=== PATIENT | male | born 1955 | race African-American/Black ===

== ENCOUNTER 2020-10-28 13:39 | Inpatient (IN) | payer OTHER ==
[2020-10-28 15:07] VITALS: BMI 28.9
[2020-10-28] MEDS ORDERED: guaiFENesin 200 MG/10 ML 10 ML UNIT-DOSE CUPS PO PRN (19:53)
[2020-10-28] MEDS ORDERED: IBUPROFEN 400 MG TABLET (FP) PO PRN (19:53)
[2020-10-28] MEDS ORDERED: MAGNESIUM CITRATE 300 ML BOTTLE PO PRN (19:53)
[2020-10-28] MEDS ORDERED: MAGNESIUM HYDROX 2400MG/30ML ORAL SUSPENSION 30 ML CUP PO PRN (19:53)
[2020-10-28] MEDS ORDERED: NICOTINE 10 MG CARTRIDGE (INHALER) IH PRN (19:53)
[2020-10-28] MEDS ORDERED: P-EPHED 60MG/TRIPROLIDI 2.5MG TABLET PO PRN (19:53)
[2020-10-28] MEDS ORDERED: LOPERAMIDE HCL 2 MG CAPSULE PO PRN (19:53)
[2020-10-28] MEDS ORDERED: MAG HYDROX/AL HYDROX/SIMETH 30 ML UNIT-DOSE CUP PO PRN (19:53)
[2020-10-28] MEDS ORDERED: ACETAMINOPHEN 325 MG TABLET (FP) PO PRN (19:53)
[2020-10-28] MEDS ORDERED: TUBERCULIN PPD 5 TU/0.1ML VIAL ID ONE (22:18)
[2020-10-28] MEDS: THIAMINE HCL 100 MG TABLET (FP) PO SCH (22:36)
[2020-10-28] MEDS: MELATONIN 5 MG TABLETS PO SCH (22:36)
[2020-10-29 10:10] LABS: HEMATOCRIT 35.4 % (35.4-49); HEMOGLOBIN 11.6 GM/dL (11.7-16.9); MCH 25.2 pg (25.7-33.7); MCHC 32.7 g/dl (32.0-35.9); MEAN CELL VOLUME 76.9 fl (80-96); MEAN PLT VOLUME 7.5 fl (7.5-11.1); PLATELET COUNT 327 10^3/uL (134-434); RBC 4.61 M/mm3 (4.00-5.60); RDW 19.6 % (11.9-15.9); WHITE BLOOD COUNT 10.7 K/mm3 (4.0-10.0)
[2020-10-29 10:13] LABS: EPI CELLS 4 /uL (0-25.1); HYALINE CASTS 0 /uL (0-3.1); URINE APPEARANCE CLEAR; URINE BACTERIA 1846 /uL (0-1359); URINE BILIRUBIN NEGATIVE (NEGATIVE); URINE COLOR YELLOW; URINE GLUCOSE (UA) NEGATIVE (NEGATIVE); URINE KETONE NEGATIVE (NEGATIVE); URINE LEUK ESTERASE TRACE (NEGATIVE); URINE NITRITE NEGATIVE (NEGATIVE); URINE PROTEIN NEGATIVE (NEGATIVE); URINE RBC 9 /uL (0-23.9); URINE WBC 7 /uL (0-25.8)
[2020-10-29 10:15] LABS: BLOOD UREA NITROGEN 18.9 mg/dL (7-18); CALCIUM 9.5 mg/dL (8.5-10.1)
[2020-10-29] MEDS: PRENATAL VITAMINS W/ FOLIC ACID TABLET (FP) PO SCH (10:15)
[2020-10-29] MEDS: NICOTINE 14 MG/24 HOURS TOPICAL PATCH TD SCH (10:16)
[2020-10-29] MEDS: TIOTROPIUM BROMIDE 2.5 MCG (SPIRIVA) RESPIMAT INHALER IH SCH (13:59)
[2020-10-29] MEDS: ALBUTEROL SO4 HFA INHALER IH SCH ×2 (14:00→19:34)
[2020-10-29] MEDS ORDERED: ATORVASTATIN CA 40 MG TABLET (FP) ONE (20:57)
[2020-10-29] MEDS: MELATONIN 5 MG TABLETS PO SCH (21:00)
[2020-10-29] MEDS: BUDESONIDE/FORMETEROL FUMARATE 160/4.5 mcg INHALER IH SCH (21:00)
[2020-10-29] MEDS: THIAMINE HCL 100 MG TABLET (FP) PO SCH (21:00)
[2020-10-29] MEDS: ATORVASTATIN CA 80 MG TABLET (FP) PO SCH (21:00)
[2020-10-30] MEDS: ALBUTEROL SO4 HFA INHALER IH SCH ×4 (00:01→19:00)
[2020-10-30] MEDS ORDERED: PT OWN MED DRAWER 7, Y5N ONE (03:15)
[2020-10-30] MEDS: PRENATAL VITAMINS W/ FOLIC ACID TABLET (FP) PO SCH (09:51)
[2020-10-30] MEDS: ASPIRIN 81 MG CHEWABLE TABLETS PO SCH (09:52)
[2020-10-30] MEDS: NICOTINE 14 MG/24 HOURS TOPICAL PATCH TD SCH (09:52)
[2020-10-30] MEDS: TIOTROPIUM BROMIDE 2.5 MCG (SPIRIVA) RESPIMAT INHALER IH SCH (09:52)
[2020-10-30] MEDS: BUDESONIDE/FORMETEROL FUMARATE 160/4.5 mcg INHALER IH SCH ×2 (09:54→21:46)
[2020-10-30] MEDS: LISINOPRIL 5 MG TABLET PO SCH (09:55)
[2020-10-30] MEDS ORDERED: ATORVASTATIN CA 40 MG TABLET (FP) ONE (19:27)
[2020-10-30] MEDS: MELATONIN 5 MG TABLETS PO SCH (21:35)
[2020-10-30] MEDS: ATORVASTATIN CA 80 MG TABLET (FP) PO SCH (21:35)
[2020-10-30] MEDS: THIAMINE HCL 100 MG TABLET (FP) PO SCH (21:35)
[2020-10-31] MEDS: ALBUTEROL SO4 HFA INHALER IH SCH ×4 (01:29→22:10)
[2020-10-31] MEDS: ASPIRIN 81 MG CHEWABLE TABLETS PO SCH (09:41)
[2020-10-31] MEDS: PRENATAL VITAMINS W/ FOLIC ACID TABLET (FP) PO SCH (09:41)
[2020-10-31] MEDS: NICOTINE 14 MG/24 HOURS TOPICAL PATCH TD SCH (09:41)
[2020-10-31] MEDS: TIOTROPIUM BROMIDE 2.5 MCG (SPIRIVA) RESPIMAT INHALER IH SCH (09:45)
[2020-10-31] MEDS: LISINOPRIL 5 MG TABLET PO SCH (09:46)
[2020-10-31] MEDS: BUDESONIDE/FORMETEROL FUMARATE 160/4.5 mcg INHALER IH SCH ×2 (09:46→21:09)
[2020-10-31] MEDS: ATORVASTATIN CA 80 MG TABLET (FP) PO SCH (21:08)
[2020-10-31] MEDS: THIAMINE HCL 100 MG TABLET (FP) PO SCH (21:08)
[2020-10-31] MEDS: MELATONIN 5 MG TABLETS PO SCH (21:08)
[2020-11-01] MEDS: ALBUTEROL SO4 HFA INHALER IH SCH ×4 (02:56→18:30)
[2020-11-01] MEDS: PRENATAL VITAMINS W/ FOLIC ACID TABLET (FP) PO SCH (09:53)
[2020-11-01] MEDS: TIOTROPIUM BROMIDE 2.5 MCG (SPIRIVA) RESPIMAT INHALER IH SCH (09:53)
[2020-11-01] MEDS: LISINOPRIL 5 MG TABLET PO SCH (09:53)
[2020-11-01] MEDS: ASPIRIN 81 MG CHEWABLE TABLETS PO SCH (09:53)
[2020-11-01] MEDS: NICOTINE 14 MG/24 HOURS TOPICAL PATCH TD SCH (09:53)
[2020-11-01] MEDS: BUDESONIDE/FORMETEROL FUMARATE 160/4.5 mcg INHALER IH SCH ×2 (09:54→21:27)
[2020-11-01] MEDS ORDERED: ATORVASTATIN CA 40 MG TABLET (FP) ONE (18:35)
[2020-11-01] MEDS: ATORVASTATIN CA 80 MG TABLET (FP) PO SCH (21:26)
[2020-11-01] MEDS: THIAMINE HCL 100 MG TABLET (FP) PO SCH (21:26)
[2020-11-01] MEDS: MELATONIN 5 MG TABLETS PO SCH (21:26)
[2020-11-02] MEDS: ALBUTEROL SO4 HFA INHALER IH SCH ×4 (01:36→19:47)
[2020-11-02] MEDS: NICOTINE 14 MG/24 HOURS TOPICAL PATCH TD SCH (09:43)
[2020-11-02] MEDS: PRENATAL VITAMINS W/ FOLIC ACID TABLET (FP) PO SCH (09:43)
[2020-11-02] MEDS: ASPIRIN 81 MG CHEWABLE TABLETS PO SCH (09:43)
[2020-11-02] MEDS: TIOTROPIUM BROMIDE 2.5 MCG (SPIRIVA) RESPIMAT INHALER IH SCH (09:43)
[2020-11-02] MEDS: LISINOPRIL 5 MG TABLET PO SCH (09:43)
[2020-11-02] MEDS: BUDESONIDE/FORMETEROL FUMARATE 160/4.5 mcg INHALER IH SCH ×2 (10:23→21:07)
[2020-11-02] MEDS ORDERED: ATORVASTATIN CA 40 MG TABLET (FP) ONE (18:28)
[2020-11-02] MEDS: THIAMINE HCL 100 MG TABLET (FP) PO SCH (21:06)
[2020-11-02] MEDS: MELATONIN 5 MG TABLETS PO SCH (21:06)
[2020-11-02] MEDS: ATORVASTATIN CA 80 MG TABLET (FP) PO SCH (21:06)
[2020-11-03] MEDS: ALBUTEROL SO4 HFA INHALER IH SCH ×4 (01:44→18:59)
[2020-11-03] MEDS: ASPIRIN 81 MG CHEWABLE TABLETS PO SCH (09:52)
[2020-11-03] MEDS: PRENATAL VITAMINS W/ FOLIC ACID TABLET (FP) PO SCH (09:52)
[2020-11-03] MEDS: TIOTROPIUM BROMIDE 2.5 MCG (SPIRIVA) RESPIMAT INHALER IH SCH (09:53)
[2020-11-03] MEDS: NICOTINE 14 MG/24 HOURS TOPICAL PATCH TD SCH (09:53)
[2020-11-03] MEDS: LISINOPRIL 5 MG TABLET PO SCH (09:53)
[2020-11-03] MEDS: BUDESONIDE/FORMETEROL FUMARATE 160/4.5 mcg INHALER IH SCH ×2 (10:09→21:21)
[2020-11-03] MEDS ORDERED: ATORVASTATIN CA 40 MG TABLET (FP) ONE (18:50)
[2020-11-03] MEDS: THIAMINE HCL 100 MG TABLET (FP) PO SCH (21:21)
[2020-11-03] MEDS: ATORVASTATIN CA 80 MG TABLET (FP) PO SCH (21:21)
[2020-11-03] MEDS: MELATONIN 5 MG TABLETS PO SCH (21:21)
[2020-11-04] MEDS: ALBUTEROL SO4 HFA INHALER IH SCH ×4 (01:11→18:44)
[2020-11-04] MEDS: TIOTROPIUM BROMIDE 2.5 MCG (SPIRIVA) RESPIMAT INHALER IH SCH (09:57)
[2020-11-04] MEDS: PRENATAL VITAMINS W/ FOLIC ACID TABLET (FP) PO SCH (09:57)
[2020-11-04] MEDS: ASPIRIN 81 MG CHEWABLE TABLETS PO SCH (09:57)
[2020-11-04] MEDS: BUDESONIDE/FORMETEROL FUMARATE 160/4.5 mcg INHALER IH SCH ×2 (09:57→21:08)
[2020-11-04] MEDS: NICOTINE 14 MG/24 HOURS TOPICAL PATCH TD SCH (09:57)
[2020-11-04] MEDS: LISINOPRIL 5 MG TABLET PO SCH (09:57)
[2020-11-04] MEDS: THIAMINE HCL 100 MG TABLET (FP) PO SCH (21:08)
[2020-11-04] MEDS: ATORVASTATIN CA 80 MG TABLET (FP) PO SCH (21:08)
[2020-11-04] MEDS: MELATONIN 5 MG TABLETS PO SCH (21:08)
[2020-11-05] MEDS: ALBUTEROL SO4 HFA INHALER IH SCH ×4 (01:38→18:45)
[2020-11-05] MEDS: ASPIRIN 81 MG CHEWABLE TABLETS PO SCH (10:15)
[2020-11-05] MEDS: PRENATAL VITAMINS W/ FOLIC ACID TABLET (FP) PO SCH (10:15)
[2020-11-05] MEDS: LISINOPRIL 5 MG TABLET PO SCH (10:16)
[2020-11-05] MEDS: NICOTINE 14 MG/24 HOURS TOPICAL PATCH TD SCH (10:16)
[2020-11-05] MEDS: TIOTROPIUM BROMIDE 2.5 MCG (SPIRIVA) RESPIMAT INHALER IH SCH (10:16)
[2020-11-05] MEDS: BUDESONIDE/FORMETEROL FUMARATE 160/4.5 mcg INHALER IH SCH ×2 (10:16→21:12)
[2020-11-05] MEDS ORDERED: ATORVASTATIN CA 40 MG TABLET (FP) ONE (18:50)
[2020-11-05] MEDS: MELATONIN 5 MG TABLETS PO SCH (21:11)
[2020-11-05] MEDS: THIAMINE HCL 100 MG TABLET (FP) PO SCH (21:12)
[2020-11-05] MEDS: ATORVASTATIN CA 80 MG TABLET (FP) PO SCH (21:12)
[2020-11-06] MEDS: ALBUTEROL SO4 HFA INHALER IH SCH ×4 (00:58→17:43)
[2020-11-06] MEDS: PRENATAL VITAMINS W/ FOLIC ACID TABLET (FP) PO SCH (09:56)
[2020-11-06] MEDS: NICOTINE 14 MG/24 HOURS TOPICAL PATCH TD SCH (09:57)
[2020-11-06] MEDS: TIOTROPIUM BROMIDE 2.5 MCG (SPIRIVA) RESPIMAT INHALER IH SCH (09:57)
[2020-11-06] MEDS: LISINOPRIL 5 MG TABLET PO SCH (09:57)
[2020-11-06] MEDS: ASPIRIN 81 MG CHEWABLE TABLETS PO SCH (09:57)
[2020-11-06] MEDS: BUDESONIDE/FORMETEROL FUMARATE 160/4.5 mcg INHALER IH SCH ×2 (09:58→21:09)
[2020-11-06] MEDS ORDERED: ATORVASTATIN CA 40 MG TABLET (FP) ONE (18:46)
[2020-11-06] MEDS: MELATONIN 5 MG TABLETS PO SCH (21:08)
[2020-11-06] MEDS: ATORVASTATIN CA 80 MG TABLET (FP) PO SCH (21:09)
[2020-11-06] MEDS: THIAMINE HCL 100 MG TABLET (FP) PO SCH (21:09)
[2020-11-07] MEDS: ALBUTEROL SO4 HFA INHALER IH SCH ×4 (00:53→19:33)
[2020-11-07] MEDS: TIOTROPIUM BROMIDE 2.5 MCG (SPIRIVA) RESPIMAT INHALER IH SCH (10:14)
[2020-11-07] MEDS: LISINOPRIL 5 MG TABLET PO SCH (10:14)
[2020-11-07] MEDS: PRENATAL VITAMINS W/ FOLIC ACID TABLET (FP) PO SCH (10:14)
[2020-11-07] MEDS: ASPIRIN 81 MG CHEWABLE TABLETS PO SCH (10:14)
[2020-11-07] MEDS: NICOTINE 14 MG/24 HOURS TOPICAL PATCH TD SCH (10:14)
[2020-11-07] MEDS: BUDESONIDE/FORMETEROL FUMARATE 160/4.5 mcg INHALER IH SCH ×2 (10:15→21:32)
[2020-11-07] MEDS ORDERED: ATORVASTATIN CA 40 MG TABLET (FP) ONE (18:46)
[2020-11-07] MEDS: MELATONIN 5 MG TABLETS PO SCH (21:32)
[2020-11-07] MEDS: ATORVASTATIN CA 80 MG TABLET (FP) PO SCH (21:32)
[2020-11-07] MEDS: THIAMINE HCL 100 MG TABLET (FP) PO SCH (21:32)
[2020-11-08] MEDS: ALBUTEROL SO4 HFA INHALER IH SCH ×4 (01:02→21:19)
[2020-11-08] MEDS: NICOTINE 14 MG/24 HOURS TOPICAL PATCH TD SCH (09:49)
[2020-11-08] MEDS: ASPIRIN 81 MG CHEWABLE TABLETS PO SCH (09:49)
[2020-11-08] MEDS: PRENATAL VITAMINS W/ FOLIC ACID TABLET (FP) PO SCH (09:49)
[2020-11-08] MEDS: TIOTROPIUM BROMIDE 2.5 MCG (SPIRIVA) RESPIMAT INHALER IH SCH (09:50)
[2020-11-08] MEDS: LISINOPRIL 5 MG TABLET PO SCH (09:50)
[2020-11-08] MEDS: BUDESONIDE/FORMETEROL FUMARATE 160/4.5 mcg INHALER IH SCH ×2 (09:51→21:19)
[2020-11-08] MEDS ORDERED: ATORVASTATIN CA 40 MG TABLET (FP) ONE (20:09)
[2020-11-08] MEDS: ATORVASTATIN CA 80 MG TABLET (FP) PO SCH (21:18)
[2020-11-08] MEDS: THIAMINE HCL 100 MG TABLET (FP) PO SCH (21:18)
[2020-11-08] MEDS: MELATONIN 5 MG TABLETS PO SCH (21:19)
[2020-11-09] MEDS: ALBUTEROL SO4 HFA INHALER IH SCH ×4 (00:57→18:35)
[2020-11-09] MEDS ORDERED: PT OWN MED DRAWER 7, Y5N ONE ×2 (03:10→07:19)
[2020-11-09] MEDS: LISINOPRIL 5 MG TABLET PO SCH (10:28)
[2020-11-09] MEDS: NICOTINE 14 MG/24 HOURS TOPICAL PATCH TD SCH (10:28)
[2020-11-09] MEDS: PRENATAL VITAMINS W/ FOLIC ACID TABLET (FP) PO SCH (10:28)
[2020-11-09] MEDS: ASPIRIN 81 MG CHEWABLE TABLETS PO SCH (10:28)
[2020-11-09] MEDS: BUDESONIDE/FORMETEROL FUMARATE 160/4.5 mcg INHALER IH SCH ×2 (10:29→21:02)
[2020-11-09] MEDS: TIOTROPIUM BROMIDE 2.5 MCG (SPIRIVA) RESPIMAT INHALER IH SCH (10:29)
[2020-11-09] MEDS ORDERED: ATORVASTATIN CA 40 MG TABLET (FP) ONE (19:10)
[2020-11-09] MEDS: ATORVASTATIN CA 80 MG TABLET (FP) PO SCH (21:02)
[2020-11-09] MEDS: MELATONIN 5 MG TABLETS PO SCH (21:02)
[2020-11-09] MEDS: THIAMINE HCL 100 MG TABLET (FP) PO SCH (21:02)
[2020-11-10] MEDS: ALBUTEROL SO4 HFA INHALER IH SCH ×4 (00:34→18:01)
[2020-11-10] MEDS ORDERED: PT OWN MED DRAWER 7, Y5N ONE ×2 (06:46→19:27)
[2020-11-10] MEDS: LISINOPRIL 5 MG TABLET PO SCH (09:54)
[2020-11-10] MEDS: ASPIRIN 81 MG CHEWABLE TABLETS PO SCH (09:54)
[2020-11-10] MEDS: PRENATAL VITAMINS W/ FOLIC ACID TABLET (FP) PO SCH (09:54)
[2020-11-10] MEDS: NICOTINE 14 MG/24 HOURS TOPICAL PATCH TD SCH (09:54)
[2020-11-10] MEDS: TIOTROPIUM BROMIDE 2.5 MCG (SPIRIVA) RESPIMAT INHALER IH SCH (09:55)
[2020-11-10] MEDS: BUDESONIDE/FORMETEROL FUMARATE 160/4.5 mcg INHALER IH SCH ×2 (09:55→21:14)
[2020-11-10] MEDS: ATORVASTATIN CA 80 MG TABLET (FP) PO SCH (21:13)
[2020-11-10] MEDS: MELATONIN 5 MG TABLETS PO SCH (21:13)
[2020-11-10] MEDS: THIAMINE HCL 100 MG TABLET (FP) PO SCH (21:13)
[2020-11-11] MEDS: ALBUTEROL SO4 HFA INHALER IH SCH ×4 (01:38→18:40)
[2020-11-11] MEDS: TIOTROPIUM BROMIDE 2.5 MCG (SPIRIVA) RESPIMAT INHALER IH SCH (10:06)
[2020-11-11] MEDS: NICOTINE 14 MG/24 HOURS TOPICAL PATCH TD SCH (10:06)
[2020-11-11] MEDS: PRENATAL VITAMINS W/ FOLIC ACID TABLET (FP) PO SCH (10:06)
[2020-11-11] MEDS: ASPIRIN 81 MG CHEWABLE TABLETS PO SCH (10:07)
[2020-11-11] MEDS: LISINOPRIL 5 MG TABLET PO SCH (10:07)
[2020-11-11] MEDS: BUDESONIDE/FORMETEROL FUMARATE 160/4.5 mcg INHALER IH SCH ×2 (10:07→21:30)
[2020-11-11] MEDS ORDERED: ATORVASTATIN CA 40 MG TABLET (FP) ONE (18:44)
[2020-11-11] MEDS: ATORVASTATIN CA 80 MG TABLET (FP) PO SCH (21:29)
[2020-11-11] MEDS: THIAMINE HCL 100 MG TABLET (FP) PO SCH (21:29)
[2020-11-11] MEDS: MELATONIN 5 MG TABLETS PO SCH (21:29)
[2020-11-12] MEDS: ALBUTEROL SO4 HFA INHALER IH SCH ×3 (01:37→06:54)
[2020-11-12 07:16] VITALS: BP 126/99; PULSE 90; TEMP 97.3
[2020-11-12] MEDS: ASPIRIN 81 MG CHEWABLE TABLETS PO SCH (09:39)
[2020-11-12] MEDS: PRENATAL VITAMINS W/ FOLIC ACID TABLET (FP) PO SCH (09:39)
[2020-11-12] MEDS: LISINOPRIL 5 MG TABLET PO SCH (09:39)
[2020-11-12] MEDS: TIOTROPIUM BROMIDE 2.5 MCG (SPIRIVA) RESPIMAT INHALER IH SCH (09:40)
[2020-11-12] MEDS: BUDESONIDE/FORMETEROL FUMARATE 160/4.5 mcg INHALER IH SCH (09:40)
[2020-11-12] MEDS: NICOTINE 14 MG/24 HOURS TOPICAL PATCH TD SCH (09:40)
== END 2020-11-12 09:42 | disposition home or self-care (01) | DRG 772 ==
LOC: YASAS 13:39 → Y3W 20:39
PROVIDERS: ADMIT Allergy & Immunology; ATTEND Allergy & Immunology
PROC: HZ42ZZZ Group Counseling for Substance Abuse Treatment, Cognitive-Behavioral (ICD-10-PCS; principal; 2020-10-28)
DX: F10.20 Alcohol dependence, uncomplicated (principal); F17.210 Nicotine dependence, cigarettes, uncomplicated; I10 Essential (primary) hypertension; Z85.46 Personal history of malignant neoplasm of prostate; Z90.79 Acquired absence of other genital organ(s)
CPT/HCPCS: 36415; 80053; 81003; 85027; 86780; 93005; 93010; C9803; U0003; U0005